=== PATIENT | female | born 1990 | race Two or more races ===

== ENCOUNTER 2025-07-24 23:28 | Emergency (ER) | payer OTHER ==
[~2025-07-24] VITALS: Ht 147.3 cm; Wt 83.9 kg
--- NOTE | 2025-07-25 | NUR ---
BIBFAMILY W CC OF NUMBNESS OF LEFT SIDE OF BODY (FACE DOWN TO ARMS) STARTED 2244 PT A/OX4. TOLERATING R/A WELL WITH NO RESP DISTRESS. SAFETY MEASURES IN PLACE.
--- NOTE | 2025-07-25 00:02 | NUR ---
SKIMMER REVERBERATORY INDIRA PT'S BLOOD
--- NOTE | 2025-07-25 00:10 | NUR ---
URINE SPECIMEN SENT TO LAB
[2025-07-25 00:18] LABS: PLATELET COUNT (AUTO) 285 K/uL (150-450); RED BLOOD CELL COUNT(AUTO) 4.16 MIL/uL (4.0-5.2); RED CELL DISTRIBUTION WIDTH 13.8 % (11.5-15.0); WHITE BLOOD COUNT (AUTO) 6.9 K/uL (4.3-11.0)
[2025-07-25 00:29] LABS: CALCIUM, SERUM 8.3 mg/dL (8.5-10.1); CREATININE 0.8 mg/dL (0.6-1.3); SODIUM SERUM 138.0 mmol/L (136-145); UREA NITROGEN, BLOOD 11.0 mg/dL (7-18)
[2025-07-25 00:35] LABS: ASPARTATE AMINOTRANSFERASE 16.0 U/L (15-37); TOTAL PROTEIN, SERUM 6.9 g/dL (6.4-8.2)
[2025-07-25 00:40] LABS: APPEARANCE,URINE CLEAR (CLEAR); BLOOD, URINE NEGATIVE Ery/uL (NEGATIVE); LEUKOCYTE ESTERASE ,URINE TRACE (NEGATIVE); NITRITE, URINE NEGATIVE (NEGATIVE); UGLUCOSE NEGATIVE (NEGATIVE)
[2025-07-25 00:43] LABS: PREGNANCY TEST URINE QUAL NEGATIVE (NEGATIVE)
[2025-07-25 01:00] LABS: ADD URINE CULTURE NO
--- NOTE | 2025-07-25 01:22 | NUR ---
Patient discharged to home in stable condition. Written and verbal after care instructions given. Patient verbalizes understanding of instruction.
[2025-07-25 01:24] VITALS: BP 117/71; TEMP 98.5; O2SAT 100
== END 2025-07-25 01:41 | disposition home or self-care (01) ==
LOC: ER 23:41
DX: R20.0 Anesthesia of skin (principal); R20.2 Paresthesia of skin; R00.2 Palpitations; Z79.899 Other long term (current) drug therapy
CPT/HCPCS: 36415; 80053-TC; 81001; 83735-TC; 84443-TC; 84703-TC; 85025-TC